=== PATIENT | female | born 1955 | race Caucasian/White ===

== ENCOUNTER 2018-12-30 20:28 | Emergency (ER) | payer MEDICARE, OTHER ==
[2018-12-30 21:01] LABS: ALT (SGPT) 11 U/L (8-55); AST (SGOT) 32 U/L (5-34); Alkaline Phosphatase 111 U/L (40-150); Anion Gap 22 mmol/L (10-20); BUN (Urea Nitrogen) 26 mg/dL (9.8-20.1); Bilirubin, Total 0.7 mg/dL (0.2-1.2); Calc. Creatinine Clearance 0 mL/min (70-130); Calcium 9.7 mg/dL (7.8-10.44); Carbon Dioxide 23 mmol/L (23-31); Chloride 94 mmol/L (98-107); Estimated GFR-MDRD 20; Globulin 3.1 g/dL (2.4-3.5); Glucose 111 mg/dL (80-115); Protein, Total 7.1 g/dL (6.0-8.3); Sodium 136 mmol/L (136-145)
[2018-12-30] MEDS ORDERED: Enoxaparin Sodium 100 MG/ML SYRINGE ONE (21:06)
[2018-12-30] MEDS ORDERED: Aspirin Chewable 81 MG TAB ONE (21:06)
[2018-12-30 21:07] LABS: #Basophils 0.1 thou/uL (0.0-0.2); #Eosinphils 0.1 thou/uL (0.0-0.7); #Lymphocytes 1.8 thou/uL (1.20-3.40); #Monocytes 0.7 thou/uL (0.11-0.59); #Neutrophils 3.4 thou/uL (1.40-6.50); %Basophils 1.1 % (0.0-1.0); %Eosinophils 2.1 % (0.0-10.0); %Lymphocytes 29.3 % (21.0-51.0); %Monocytes 10.8 % (0.0-10.0); %Neutrophils 56.7 % (42.0-75.0); Hemoglobin 13.7 g/dL (12.0-16.0); Large Platelets SLIGHT; Mean Corpuscular HGB CONC 33.2 g/dL (32.0-36.0); Mean Corpuscular Hemoglobin 33.8 pg (27.0-31.0); Platelet Count 108 thou/uL (130-400); RBC Distribution Width 14.1 % (11.5-14.5); Red Blood Cell (RBC) Count 4.04 mill/uL (4.20-5.40)
[2018-12-30 21:08] LABS: Macrocytosis SLIGHT = 6-15 cells (100X) (0-5/hpf); Platelet Morphology Comment Appears Decreased
--- NOTE | 2018-12-30 21:16 | RAD ---
CHEST ONE VIEW: Indication: Shortness of breath. Weakness. Comparison: None. FINDINGS: The lungs are clear. Heart size is within normal limits for the exam technique. No pleural effusion o r pneumothorax is evident. There is an ACDF involving C5 through C7. No acute osseous abnormality is evident. IMPRESSION: No acute cardiopulmonary abnormality. POS: [facility]
[2018-12-30 21:18] LABS: CKMB 5.2 ng/mL (0-6.6)
[2018-12-30] MEDS ORDERED: Furosemide 40 MG/4 ML VIAL ONE (21:21)
[2018-12-30 21:26] LABS: Potassium 2.8 mmol/L (3.5-5.1)
[2018-12-30] MEDS ORDERED: Ondansetron PF 4 MG/2 ML Vial ONE (21:38)
[2018-12-30] MEDS ORDERED: Potassium Chloride 20 MEQ TAB ONE (21:38)
[2018-12-30 22:11] LABS: Clarity Cloudy (Clear); Glucose, Urine (Dipstick) Negative (Negative); Leukocyte Negative (Negative); Nitrite Negative (Negative); Protein, Urine (Dipstick) 100 mg/dL (Neg-Trace)
[2018-12-30 22:12] LABS: Bilirubin Moderate (Negative); Blood, Urine Trace (Negative)
[2018-12-30] MEDS ORDERED: Thiamine HCl 200 MG/2 ML VIAL ONE (22:12)
[2018-12-30 22:14] LABS: Squamous Epithelial 0-3 HPF (0-3); Transitional Epithelial 0-3 HPF (0-3)
[2018-12-30 22:16] LABS: Bacteria/HPF 1+ HPF (None Seen)
[2018-12-30 22:17] LABS: Hyaline Casts/LPF 7-10 HYALINE CAST LPF (0-3 Hyaline); Other Casts/LPF OTHER CAST LPF (0-3 Hyaline)
== END 2018-12-30 22:18 | disposition admitted as inpatient to this hospital (09) ==
LOC: BURERS 20:28
DX: I50.9 Heart failure, unspecified (principal); F10.10 Alcohol abuse, uncomplicated; E87.6 Hypokalemia; B37.2 Candidiasis of skin and nail; F11.10 Opioid abuse, uncomplicated; R79.89 Other specified abnormal findings of blood chemistry; F32.9 Major depressive disorder, single episode, unspecified
CPT/HCPCS: 71045; 80053; 80307; 81003; 81015; 82553; 83880; 84484; 85025; 85379; 93005; 94760; 96361; 96372; 96374; 96375; J1650; J1940; J2405; J3411

== ENCOUNTER 2019-01-10 16:58 | Inpatient (IN) | payer MEDICARE ==
[2019-01-10 17:05] VITALS: BMI 32.7
[2019-01-10] MEDS ORDERED: Furosemide 20 MG TAB PO PRN (17:55)
[2019-01-10] MEDS: Famotidine 20 MG TAB PO SCH (21:25)
[2019-01-10] MEDS: Atorvastatin Calcium 40 MG TAB PO SCH (21:25)
[2019-01-10] MEDS: Apixaban 5 MG TAB PO SCH (21:25)
[2019-01-10] MEDS: Acetaminophen 325 MG TAB PO PRN (21:31)
[2019-01-11] MEDS: Levothyroxine Sodium 50 MCG TAB PO SCH (06:06)
[2019-01-11] MEDS: Carvedilol 3.125 MG TAB PO SCH ×2 (09:08→18:00)
[2019-01-11] MEDS: Apixaban 5 MG TAB PO SCH ×2 (09:09→20:42)
[2019-01-11] MEDS: carBAMazepine 200 MG TAB PO SCH (10:09)
[2019-01-11] MEDS: Aspirin Chewable 81 MG TAB PO SCH (10:09)
[2019-01-11] MEDS: Famotidine 20 MG TAB PO SCH ×2 (10:10→20:42)
[2019-01-11] MEDS: Lisinopril 5 MG TAB PO SCH (10:11)
[2019-01-11] MEDS: Saccharomyces boulardii 250 MG CAP PO SCH (10:20)
[2019-01-11] MEDS: Thiamine 100 MG TAB PO SCH (10:20)
[2019-01-11] MEDS: Atorvastatin Calcium 40 MG TAB PO SCH (20:42)
[2019-01-11] MEDS: traMADol HCl 50 MG TAB PO PRN (20:45)
[2019-01-12] MEDS: Levothyroxine Sodium 50 MCG TAB PO SCH (07:36)
[2019-01-12] MEDS: Lisinopril 5 MG TAB PO SCH (09:51)
[2019-01-12] MEDS: Carvedilol 3.125 MG TAB PO SCH ×2 (09:54→18:20)
[2019-01-12] MEDS: Apixaban 5 MG TAB PO SCH ×2 (09:55→21:01)
[2019-01-12] MEDS: Thiamine 100 MG TAB PO SCH (09:55)
[2019-01-12] MEDS: Famotidine 20 MG TAB PO SCH ×2 (09:55→21:02)
[2019-01-12] MEDS: Saccharomyces boulardii 250 MG CAP PO SCH (09:55)
[2019-01-12] MEDS: Aspirin Chewable 81 MG TAB PO SCH (09:55)
[2019-01-12] MEDS: carBAMazepine 200 MG TAB PO SCH (09:55)
--- NOTE | 2019-01-12 15:09 | HP ---
PRIMARY CARE PHYSICIAN: None. CHIEF COMPLAINT: Skilled care with physical and occupational therapy. HISTORY OF PRESENT ILLNESS: Ms. Mars is a 63-year-old white female with history of hypertension and chronic back pain with a recent [id number] myocardial infarction, popliteal DVT with saddle bilateral pulmonary embolism and acalculous cholecystitis. She was admitted on 01/10/2019 for skilled rehab with Physical and Occupational Therapy to address physical deconditioning. The patient was visiting daughter from [place], between her flight from [place] to [place], she got weak, dizzy, and short of breath. She checked into a hotel, but became very weak, hence ER consultation at [facility]. On evaluation, she had dyspnea, hypertension, acute renal failure with elevated troponins and abnormal EKG. On further testing, she was found to have right popliteal DVT with bilateral saddle embolus. She was also found to have non ST-segment myocardial infarction with moderately enlarged right atrium and ventricle secondary to [id number] tricuspid regurgitation and grade 1 diastolic dysfunction with EF of 50% to 55%. She had a negative stress test. The patient was started on Eliquis, aspirin, EBONY inhibitor, beta betty, diuretics, and oral antibiotics. Her condition gradually and partially improved. Hence, recommendation for skilled rehab prior to going back home. Prior to her transfer, her vital signs showed blood pressure of 124/77, temperature of 98.1, pulse of 67, respirations of 20, O2 saturation 96% on 2 L. CBC showed WBC of 5.5, hemoglobin of 9.4, hematocrit of 29, platelet count of 493. Basic metabolic panel showed sodium of 138, potassium of 4, chloride of 107, carbon dioxide of 23, BUN of 12, creatinine of 0.84, glucose of 83, calcium of 9.0. Ms. Mars was walking 260 feet with mild shortness of breath during her physical therapy. She was still weak and had poor balance, endurance, and had episodes of shortness of breath. Today, she was weaned off from oxygen, she walked 200 feet x2. She is doing okay; however, she is complaining of diffuse itching, she reports very sensitive skin from medicines, heat/or change of weather or use of detergent or different sheets. She is also having aches and pains, she reports taking ibuprofen at night. PAST MEDICAL HISTORY: 1. Hypertension. 2. Cervical and lumbar spondylosis. 3. Depression. 4. Alcohol use disorder. PAST SURGICAL HISTORY: 1. Cervical spine surgery. 2. Hysterectomy. FAMILY HISTORY: Father had colon cancer. Mother had valvular heart disease. SOCIAL HISTORY: The patient lives alone in [place]. According to the notes, her daughter informed that the patient has a long history of alcohol abuse. She has a daughter that lives in [place]. ALLERGIES: NO KNOWN DRUG ALLERGY. CURRENT MEDICATIONS: 1. Tylenol 650 mg every 4 hours for pain. 2. Eliquis 10 mg b.i.d. 3. Aspirin 81 mg daily. 4. Atorvastatin 40 mg at bedtime. 5. Carbamazepine 200 mg daily. 6. Carvedilol 6.25 mg b.i.d. 7. Cymbalta 20 mg daily. 8. Famotidine 20 mg b.i.d. 9. Lasix 20 mg daily p.r.n. for swelling. 10. Levothyroxine 50 mcg daily. 11. Lisinopril 5 mg daily. 12. Thiamine 100 mg daily. 13. O2 of 2 to 3 L p.r.n. for O2 sats above 92%. REVIEW OF SYSTEMS: GENERAL: Positive for weakness. Negative for fever or chills. HEENT: Negative for nasal congestion. CARDIOVASCULAR: Positive for shortness of breath, positive for low blood pressure. RESPIRATORY: Negative for cough. Negative for wheezing. GI: Negative for nausea, vomiting, diarrhea, or constipation. PSYCH: No depression. No anxiety. MUSCULOSKELETAL: Positive for muscular weakness. Negative for swelling. PHYSICAL EXAMINATION: VITAL SIGNS: Blood pressure of 118/71, pulse of 81, O2 saturation 99%. Blood pressure 108/67, O2 saturation 96% on room air. GENERAL: The patient is alert, oriented, not in respiratory distress. HEENT: Normocephalic, atraumatic. Pupils are equally reactive to light. Negative for pharyngeal congestion. Moist mucous membrane. NECK: Supple. Negative for lymphadenopathy. CHEST AND LUNGS: Symmetrical expansion. Clear to auscultation. HEART: Regular rate, rhythm. Negative for murmur, rubs, or gallops. LUNGS: Symmetrical expansion. Clear to auscultation bilaterally. ABDOMEN: Slightly distended, soft, normoactive bowel sounds. EXTREMITIES: Negative for good range of motion. Negative for swelling. Negative for Homans sign. PSYCH: Appropriate affect and demeanor. LABS AND IMAGING: Reviewed. ASSESSMENT: 1. Physical deconditioning secondary to prolonged hospitalization. 2. Dyspnea with hypoxemia secondary to bilateral saddle pulmonary embolism, improved. 3. [id number] myocardial infarction with negative stress test. 4. Congestive heart failure with diastolic dysfunction with EF of 50% to 55% secondary to [id number] TR. 5. Acute acalculous cholecystitis, improved. 6. Acute renal insufficiency secondary to volume depletion, resolved. 7. Hypertension. 8. Morbid obesity. 9. Alcohol use disorder. 10. Hypothyroidism. 11. Full code. PLAN: 1. Admitted for jail facility with Physical and Occupational Therapy to evaluate and treat physical deconditioning, so the patient can safely transition to home. 2. Reconcile hospital medication. 3. Case Management consult to address needs prior to her discharge. Job ID: [id number]
[2019-01-12] MEDS: Atorvastatin Calcium 40 MG TAB PO SCH (21:01)
[2019-01-13] MEDS: Levothyroxine Sodium 50 MCG TAB PO SCH (04:56)
[2019-01-13] MEDS: Apixaban 5 MG TAB PO SCH ×2 (08:18→21:30)
[2019-01-13] MEDS: Saccharomyces boulardii 250 MG CAP PO SCH (08:19)
[2019-01-13] MEDS: Thiamine 100 MG TAB PO SCH (08:19)
[2019-01-13] MEDS: Famotidine 20 MG TAB PO SCH ×2 (08:19→21:30)
[2019-01-13] MEDS: Carvedilol 3.125 MG TAB PO SCH ×2 (08:19→17:33)
[2019-01-13] MEDS: Aspirin Chewable 81 MG TAB PO SCH (08:19)
[2019-01-13] MEDS: Lisinopril 5 MG TAB PO SCH (08:19)
[2019-01-13] MEDS: carBAMazepine 200 MG TAB PO SCH (08:20)
[2019-01-13] MEDS: Atorvastatin Calcium 40 MG TAB PO SCH (21:30)
[2019-01-13] MEDS: traMADol HCl 50 MG TAB PO PRN (21:32)
[2019-01-14] MEDS: Levothyroxine Sodium 50 MCG TAB PO SCH (05:46)
[2019-01-14] MEDS: Lisinopril 5 MG TAB PO SCH (08:32)
[2019-01-14] MEDS: Carvedilol 3.125 MG TAB PO SCH ×2 (08:32→17:44)
[2019-01-14] MEDS: carBAMazepine 200 MG TAB PO SCH (08:33)
[2019-01-14] MEDS: Thiamine 100 MG TAB PO SCH (08:33)
[2019-01-14] MEDS: Saccharomyces boulardii 250 MG CAP PO SCH (08:33)
[2019-01-14] MEDS: Aspirin Chewable 81 MG TAB PO SCH (08:33)
[2019-01-14] MEDS: Famotidine 20 MG TAB PO SCH ×2 (08:33→20:46)
[2019-01-14] MEDS: Apixaban 5 MG TAB PO SCH ×3 (08:34→20:46)
[2019-01-14] MEDS ORDERED: Polyethylene Glycol 3350 17 GM Packet PO PRN (18:09)
[2019-01-14] MEDS: Atorvastatin Calcium 40 MG TAB PO SCH (20:46)
[2019-01-14] MEDS: Acetaminophen 325 MG TAB PO PRN (20:49)
[2019-01-15] MEDS: Levothyroxine Sodium 50 MCG TAB PO SCH (05:33)
[2019-01-15] MEDS: Lisinopril 5 MG TAB PO SCH (09:42)
[2019-01-15] MEDS: Thiamine 100 MG TAB PO SCH (09:42)
[2019-01-15] MEDS: Famotidine 20 MG TAB PO SCH ×2 (09:42→20:51)
[2019-01-15] MEDS: Carvedilol 3.125 MG TAB PO SCH ×2 (09:42→16:59)
[2019-01-15] MEDS: Furosemide 20 MG TAB PO SCH (09:42)
[2019-01-15] MEDS: Apixaban 5 MG TAB PO SCH ×2 (09:43→20:51)
[2019-01-15] MEDS: Saccharomyces boulardii 250 MG CAP PO SCH (09:43)
[2019-01-15] MEDS: carBAMazepine 200 MG TAB PO SCH (09:43)
[2019-01-15] MEDS: Aspirin Chewable 81 MG TAB PO SCH (09:44)
[2019-01-15] MEDS: traMADol HCl 50 MG TAB PO PRN ×3 (09:45→16:58)
[2019-01-15] MEDS: Atorvastatin Calcium 40 MG TAB PO SCH (20:51)
[2019-01-16] MEDS: Levothyroxine Sodium 50 MCG TAB PO SCH (05:09)
[2019-01-16] MEDS: Carvedilol 3.125 MG TAB PO SCH ×2 (08:24→18:25)
[2019-01-16] MEDS: Apixaban 5 MG TAB PO SCH ×2 (08:24→20:53)
[2019-01-16] MEDS: Thiamine 100 MG TAB PO SCH (08:25)
[2019-01-16] MEDS: carBAMazepine 200 MG TAB PO SCH (08:25)
[2019-01-16] MEDS: Aspirin Chewable 81 MG TAB PO SCH (08:25)
[2019-01-16] MEDS: Famotidine 20 MG TAB PO SCH ×2 (08:25→20:54)
[2019-01-16] MEDS: Furosemide 20 MG TAB PO SCH (08:25)
[2019-01-16] MEDS: Saccharomyces boulardii 250 MG CAP PO SCH (08:26)
[2019-01-16] MEDS: Lisinopril 5 MG TAB PO SCH (08:26)
[2019-01-16] MEDS: traMADol HCl 50 MG TAB PO PRN ×2 (08:37→21:05)
[2019-01-16] MEDS: hydrOXYzine 25 MG TAB PO PRN (08:37)
[2019-01-16] MEDS: Atorvastatin Calcium 40 MG TAB PO SCH (20:53)
[2019-01-17] MEDS: Levothyroxine Sodium 50 MCG TAB PO SCH (05:09)
[2019-01-17 06:26] VITALS: BP 125/58; TEMP 99.1
[2019-01-17] MEDS: Lisinopril 5 MG TAB PO SCH (08:49)
[2019-01-17] MEDS: Saccharomyces boulardii 250 MG CAP PO SCH (08:49)
[2019-01-17] MEDS: Thiamine 100 MG TAB PO SCH (08:50)
[2019-01-17] MEDS: carBAMazepine 200 MG TAB PO SCH (08:50)
[2019-01-17] MEDS: Aspirin Chewable 81 MG TAB PO SCH (08:50)
[2019-01-17] MEDS: Apixaban 5 MG TAB PO SCH (08:50)
[2019-01-17] MEDS: Carvedilol 3.125 MG TAB PO SCH (08:51)
[2019-01-17] MEDS: Famotidine 20 MG TAB PO SCH (08:51)
[2019-01-17] MEDS: Furosemide 20 MG TAB PO SCH (08:51)
[2019-01-17] MEDS: traMADol HCl 50 MG TAB PO PRN (09:00)
[2019-01-17] MEDS: hydrOXYzine 25 MG TAB PO PRN (12:07)
== END 2019-01-17 14:30 | disposition home or self-care (01) | DRG 175 ==
LOC: BURMED 16:58
PROVIDERS: ADMIT Family Medicine; ATTEND Family Medicine
DX: I26.92 Saddle embolus of pulmonary artery without acute cor pulmonale (principal); I21.4 Non-ST elevation (NSTEMI) myocardial infarction; I50.32 Chronic diastolic (congestive) heart failure; I11.0 Hypertensive heart disease with heart failure; I07.1 Rheumatic tricuspid insufficiency; K81.9 Cholecystitis, unspecified; E03.9 Hypothyroidism, unspecified; F32.9 Major depressive disorder, single episode, unspecified; E66.9 Obesity, unspecified; R53.81 Other malaise; Z90.710 Acquired absence of both cervix and uterus; Z79.82 Long term (current) use of aspirin; Z79.899 Other long term (current) drug therapy; Z68.31 Body mass index [BMI] 31.0-31.9, adult